=== PATIENT | female | born 1965 | race American Indian/Alaskan Native ===

== ENCOUNTER 2018-05-20 07:29 | Observation (INO) | payer MEDICARE, MEDICAID ==
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
[2018-05-20 10:59] LABS: ACETAMINOPHEN < 2 ug/mL (10-30)
--- NOTE | 2018-05-20 21:03 | PCM.SN ---
- Free Text/Narrative Note: as instructed, pt returns in 12h for 2nd dose of IV ceftriaxone 1 gm and vanco 1 gm for cellulitis of L forearm states he has been feeling well on exam the redness has extended 1 cm beyond the inked line in several locations on his L forearm which is bothersome however WBC 13k to 10k in past 12h and CRP essentially unchanged from 9.1 to 11.3 still with soreness when he flexes his L elbow, declined both Toradol and sling agreed to return in AM for a 3rd dose of antbx as well as lab tests (CBC, CRP, hepatitis panel) ASSESS: cellulitis of L forearm (unchanged, perhaps slightly worse, cannot exclude concomitant chemical inflammation from extravasated heroin), lymphangitis L arm (better) PLAN: return in AM, IV removed
[2018-05-20] MEDS ORDERED: Ondansetron 4 MG Tab.DIS PO PRN (22:44)
[2018-05-20] MEDS ORDERED: Acetaminophen 325 MG Tab PO PRN (22:44)
[2018-05-20] MEDS ORDERED: Ibuprofen 600 MG Tab PO PRN (22:44)
[2018-05-20] MEDS ORDERED: Magnesium Hydroxide 400 MG/5 ML Susp 30 ML Cup PO PRN (22:44)
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
== END 2018-05-21 13:10 ==
LOC: FB.ED 07:29 → FB.MS 20:45
PROVIDERS: ADMIT Emergency Medicine; ATTEND Family Medicine
DX: T33.821A Superficial frostbite of right foot, initial encounter (principal); T33.822A Superficial frostbite of left foot, initial encounter; F32.9 Major depressive disorder, single episode, unspecified; F41.1 Generalized anxiety disorder; R47.89 Other speech disturbances; V00-Y99 External causes of morbidity; Z59.0 Homelessness; Z88.8 Allergy status to other drugs, medicaments and biological substances
CPT/HCPCS: 36415; 80053; 80305; 84443; 85025; 86140; 99285; G0480 ×3; G0378